=== PATIENT | male | born 1955 ===

== ENCOUNTER 2020-11-24 05:30 | Day surgery (SDC) | payer OTHER | END 2020-11-24 12:50 | disposition home or self-care (01) | LOC: AMB-ENDOS 05:30 | PROVIDERS: ATTEND Surgery | DX: K62.89 Other specified diseases of anus and rectum (principal); K64.2 Third degree hemorrhoids; Z20.822 Contact with and (suspected) exposure to COVID-19 ==

== ENCOUNTER 2020-11-26 05:49 | Day surgery (SDC) | payer OTHER ==
[2020-11-26] MEDS ORDERED: PERCOCET 5-3251 EACH PO ×2 (08:16)
[2020-11-26] MEDS ORDERED: NEURONTIN300 MG PO ×2 (08:17)
[2020-11-26] MEDS ORDERED: KETO10TA2 PO ×2 (08:17)
== END 2020-11-26 15:30 | disposition home or self-care (01) ==
LOC: CIR.AMB 05:49 → SURH 10:45 → EDSTATUS 10:45 → CIR.AMB 15:30
PROVIDERS: ATTEND Surgery
DX: K64.8 Other hemorrhoids (principal); K64.4 Residual hemorrhoidal skin tags; Z20.822 Contact with and (suspected) exposure to COVID-19